=== PATIENT | female | born 1935 | race Caucasian/White ===

== ENCOUNTER 2017-05-27 06:55 | Day surgery (SDC) | payer MEDICARE, OTHER ==
[2017-05-27] MEDS ORDERED: Lactated Ringers 1,000 ML IV SCH (07:15)
[2017-05-27] MEDS ORDERED: Propofol 200 MG/20 ML SDV IV ONE (08:30)
--- NOTE | 2017-05-27 09:17 | PCM.OPNOTE ---
- General Post-Op/Procedure Note Date of Surgery/Procedure: 05/27/17 Operative Procedure(s): c scope Findings: sigmoid diverticulosis internal hemorrhoids Pre Op Diagnosis: + FIT Post-Op Diagnosis: sigmoid diverticulosis. internal hemorrhoids Anesthesia Technique: MAC Primary Surgeon: Surya Kaur Anesthesia Provider: Maisha Izquierdo Pathology: none Complications: None Condition: Good Free Text/Narrative:: see dictation
--- NOTE | 2017-05-27 13:11 | OR ---
DATE OF OPERATION: 05/27/2017 SURGEON: Surya Kaur MD PROCEDURE PERFORMED: Colonoscopy. PREOPERATIVE DIAGNOSIS: Positive fit for occult blood. POSTOPERATIVE DIAGNOSIS: Sigmoid diverticulosis and internal hemorrhoids. INDICATIONS FOR PROCEDURE: This is an 81-year-old white female who is recently noted to have a positive fit on recent annual physical. She was offered and accepted colonoscopy as part of a workup for bleeding. DESCRIPTION OF PROCEDURE: After an excellent IV sedation was administered, digital rectal exam was performed. No marked abnormality was noted. Flexible colonoscope was inserted and advanced to the cecum without difficulty. The prep was excellent. The following findings were noted. Ascending colon, unremarkable. Transverse colon, unremarkable. Descending colon, unremarkable. Sigmoid; one small area with three diverticula, otherwise unremarkable. Rectum, unremarkable. On retroflexing the scope, there was some evidence of what appears to be internal hemorrhoids and this may be the presumed cause of her positive fit exam. Colon was deflated, scope was removed. The patient tolerated the procedure well and was taken to recovery in good condition. /[id number] /MODL
== END 2017-05-27 10:08 | disposition home or self-care (01) ==
LOC: FB.SDS 06:55
PROVIDERS: ATTEND Surgery
DX: K57.30 Diverticulosis of large intestine without perforation or abscess without bleeding (principal); K64.8 Other hemorrhoids; I10 Essential (primary) hypertension; F41.9 Anxiety disorder, unspecified; Z90.710 Acquired absence of both cervix and uterus; Z98.890 Other specified postprocedural states; Z79.899 Other long term (current) drug therapy
CPT/HCPCS: 00810; 45378; J2704; J7120